=== PATIENT | female | born 1985 | race Caucasian/White ===

== ENCOUNTER 2017-05-23 01:52 | Emergency (ER) | payer BC, OTHER ==
[2017-05-23 02:40] LABS: #Basophils 0.1 thou/uL (0.0-0.2); #Eosinphils 0.4 thou/uL (0.0-0.7); #Monocytes 0.4 thou/uL (0.11-0.59); #Neutrophils 2.5 thou/uL (1.40-6.50); %Basophils 1.7 % (0.0-1.0); %Eosinophils 6.9 % (0.0-10.0); %Lymphocytes 37.8 % (21.0-51.0); %Monocytes 8.1 % (0.0-10.0); %Neutrophils 45.6 % (42.0-75.0); Hemoglobin 13.5 g/dL (12.0-16.0); Mean Corpuscular HGB CONC 34.2 g/dL (32.0-36.0); Mean Corpuscular Volume 93.8 fl (81.0-99.0); Platelet Count 223 thou/uL (130-400); RBC Distribution Width 11.7 % (11.5-14.5); White Blood Cell (WBC) Count 5.4 thou/uL (4.8-10.8)
[2017-05-23 02:47] LABS: ALT (SGPT) 14 U/L (8-55); Albumin 4.5 g/dL (3.5-5.0); Alkaline Phosphatase 77 U/L (40-150); Anion Gap 19 mmol/L (10-20); BUN (Urea Nitrogen) 18 mg/dL (7.0-18.7); Bilirubin, Total 0.4 mg/dL (0.2-1.2); Calc. Creatinine Clearance 0 mL/min (70-130); Calcium 9.2 mg/dL (7.8-10.44); Carbon Dioxide 21 mmol/L (22-29); Chloride 105 mmol/L (98-107); Estimated GFR-MDRD 76; Globulin 2.6 g/dL (2.4-3.5); Glucose 100 mg/dL (70-105); Potassium 4.2 mmol/L (3.5-5.1); Protein, Total 7.1 g/dL (6.0-8.3); Sodium 141 mmol/L (136-145)
[2017-05-23 02:54] LABS: CKMB 0.9 ng/mL (0-6.6); Troponin I 0.016 ng/mL (< 0.028)
[2017-05-23 03:02] LABS: Pregnancy Test - Urine (BHCG) Negative (Negative); Pregu Control Background? CLEAR/WHITE (CLR/WHITE); Pregu Control Bar Appear? YES (CONTROL BAR); Specific Gravity 1.015 (1.002-1.036)
[2017-05-23 03:03] LABS: AST (SGOT) 23 U/L (5-34)
[2017-05-23 03:03] LABS: Amphetamine Not Detected (NotDetected); Barbiturates Screen Not Detected (NotDetected); Benzodiazepine Screen Not Detected (NotDetected); Cocaine Metabolite Screen Not Detected (NotDetected); Medtox Control Line Valid? VALID (VALID); Methadone Not Detected (NotDetected); Methamphetamine Not Detected (NotDetected); Opiate Screen Not Detected (NotDetected); Oxycodone Screen Not Detected (NotDetected); Phencyclidine (PCP) Not Detected (NotDetected); THC/Cannabinoid Screen Not Detected (NotDetected); Tricyclic Screen Not Detected (NotDetected)
[2017-05-23 03:04] LABS: Bilirubin Negative (Negative); Blood, Urine Trace (Negative); Clarity Clear (Clear); Glucose, Urine (Dipstick) Negative (Negative); Leukocyte Negative (Negative); Nitrite Negative (Negative); Protein, Urine (Dipstick) Negative (Neg-Trace); Specific Gravity, Urine 1.015 (1.005-1.030); Urobilinogen 0.2 mg/dL (0.2-1.0)
[2017-05-23 03:05] LABS: Bacteria/HPF None Seen HPF (None Seen); WBC/HPF 0-3 HPF (0-3)
--- NOTE | 2017-05-23 08:45 | RAD ---
2 VIEWS CHEST: Date: 05/23/17 COMPARISON: None. HISTORY: Cardiac palpitations. FINDINGS: Two views of the chest show normal sized cardiomediastinal silhouette. There is no evidence of conso lidation, mass, or pleural effusion. The bones are unremarkable. IMPRESSION: No evidence of acute cardiopulmonary disease. POS: [facility]
== END 2017-05-23 03:59 | disposition home or self-care (01) ==
LOC: MADERS 01:52
DX: F41.1 Generalized anxiety disorder (principal); I95.1 Orthostatic hypotension
CPT/HCPCS: 36415; 71020; 80053; 80306; 81003; 81015; 81025; 82553; 84443; 84484; 85025; 85379; 93005